=== PATIENT | female | born 1995 | race Hispanic/Latino ===

== ENCOUNTER 2022-06-27 12:52 | Emergency (ER) | payer OTHER ==
--- NOTE | 2022-06-27 14:14 | ER ---
Nurse's Notes [facility] Name: Shila Vivar Age: 26 yrs Sex: Female : 1995 Arrival Date: 06/27/2022 Time: 12:54 Bed 10 Private MD: Diagnosis: Unspecified conjunctivitis Presentation: 06/27 13:47 Chief complaint: Patient states: burning and redness to L eye that began 2 days ago. ss Coronavirus screen: Client denies travel out of the [place] in the last 14 days. Ebola Screen: Patient denies exposure to infectious person. Patient denies travel to an Ebola-affected area in the 21 days before illness onset. Initial Sepsis Screen: Does the patient meet any 2 criteria? No. Patient's initial sepsis screen is negative. Does the patient have a suspected source of infection? No. Patient's initial sepsis screen is negative. Risk Assessment: Do you want to hurt yourself or someone else? Patient reports no desire to harm self or others. Onset of symptoms was June 25, 2022. 13:47 Method Of Arrival: Ambulatory ss 13:47 Acuity: LATISHA 4 ss Historical: - Allergies: 13:47 PENICILLINS; ss - Home Meds: 13:47 None [Active]; ss - PMHx: 13:47 None; ss - PSHx: 13:47 section; ss Screenin:12 [facility] ED Fall Risk Assessment (Adult) History of falling in the last 3 months, ss including since admission. Abuse screen: Denies threats or abuse. Denies injuries from another. Nutritional screening: No deficits noted. Tuberculosis screening: Never had TB. Assessment: 14:02 General: Appears uncomfortable, Behavior is calm, cooperative. Pain: Complains of pain ss in left eye Pain currently is 6 out of 10 on a pain scale. Quality of pain is described as burning, Pain began 2-3 days ago. Is continuous. Neuro: Level of Consciousness is awake, alert, obeys commands, Oriented to person, place, time, situation. Cardiovascular: Capillary refill < 3 seconds is brisk in bilateral fingers Patient's skin is warm and dry. Respiratory: Airway is patent Respiratory effort is even, unlabored, Respiratory pattern is regular, symmetrical. Derm: Skin is intact, is healthy with good turgor, Skin is dry, Skin is pink, warm \T\ dry. normal. Musculoskeletal: Circulation, motion, and sensation intact. Range of motion: intact in all extremities, Swelling absent. Vital Signs: 13:47 BP 139 / 96; Pulse 82; Resp 14; Temp 98.3(TE); Pulse Ox 100% on R/A; ss Visual Acuity: 14:12 Left Eye Visual acuity 20/100, ; Right Eye Visual acuity 20/200, ; Both Eyes Visual ss acuity 20/70; Without Lenses; ED Course: 12:54 Patient arrived in ED. mr 13:45 [facility] snw 13:45 Piyush Gerber MD is Attending Physician. snw 13:47 Triage completed. ss 13:47 Arm band placed on right wrist. ss 14:02 Patient has correct armband on for positive identification. ss 14:15 Lucinda Carlisle, JENNIFER is Primary Nurse. ss 15:35 No provider procedures requiring assistance completed. Patient did not have IV access ss during this emergency room visit. Administered Medications: 15:09 Drug: Vigamox (moxifloxacin) Drops 0.5 % 2 drops Route: Ophthalmic; Site: left eye; ss Medication: 14:12 VIS not applicable for this client. ss Outcome: 14:13 Discharge ordered by . snw 15:35 Discharged to home ambulatory. ss 15:35 Condition: good 15:35 Discharge instructions given to patient, family, Instructed on discharge instructions, follow up and referral plans. medication usage, Demonstrated understanding of instructions, follow-up care, medications, Prescriptions given X 1. 15:36 Patient left the ED. ss Signatures: Isabelle Cooley FNP-C FNP-Ame Mindy Berger mr Lucinda Carlisle, RN RN ss
--- NOTE | 2022-06-27 14:14 | EDPHYS ---
Physician Documentation [facility] Name: Shila Vivar Age: 26 yrs Sex: Female : 1995 Arrival Date: 06/27/2022 Time: 12:54 Bed 10 Private MD: ED Physician Piyush Gerber HPI: 06/27 13:43 This 26 yrs old Female presents to ER via Unassigned with complaints of Eye snw Problem. 13:43 The patient is experiencing pain, redness, tearing, to the left eye, caused by contact snw lens. Onset: The symptoms/episode began/occurred acutely, 2 day(s) ago, and became persistent. Duration: the symptoms are continuous. Alleviated by covering eye. Associated signs and symptoms: Pertinent positives: None. Patient wears soft contacts. Severity of symptoms: At their worst the symptoms were mild in the emergency department the symptoms are unchanged. It is unknown whether or not the patient has had similar symptoms in the past. It is unknown whether or not the patient has recently seen a physician. gets contacts in [place]. Historical: - Allergies: 13:47 PENICILLINS; ss - Home Meds: 13:47 None [Active]; ss - PMHx: 13:47 None; ss - PSHx: 13:47 section; ss ROS: 13:43 Constitutional: Negative for fever, chills, and weight loss, ENT: Negative for injury, snw pain, and discharge, Neck: Negative for injury, pain, and swelling, Cardiovascular: Negative for chest pain, palpitations, and edema, Respiratory: Negative for shortness of breath, cough, wheezing, and pleuritic chest pain, Abdomen/GI: Negative for abdominal pain, nausea, vomiting, diarrhea, and constipation, Back: Negative for injury and pain, : Negative for injury, bleeding, discharge, and swelling, MS/Extremity: Negative for injury and deformity, Skin: Negative for injury, rash, and discoloration, Neuro: Negative for headache, weakness, numbness, tingling, and seizure, Psych: Negative for depression, anxiety, suicide ideation, homicidal ideation, and hallucinations. 13:43 Eyes: Positive for itching, photophobia, redness, of the outer aspect of conjuctiva of left eye and inner aspect of conjunctiva of left eye. Exam: 13:43 Constitutional: This is a well developed, well nourished patient who is awake, alert, snw and in no acute distress. Head/Face: Normocephalic, atraumatic. Neck: Trachea midline, no thyromegaly or masses palpated, and no cervical lymphadenopathy. Supple, full range of motion without nuchal rigidity, or vertebral point tenderness. No Meningismus. Chest/axilla: Normal chest wall appearance and motion. Nontender with no deformity. No lesions are appreciated. Cardiovascular: Regular rate and rhythm with a normal S1 and S2. No gallops, murmurs, or rubs. Normal PMI, no JVD. No pulse deficits. Respiratory: Lungs have equal breath sounds bilaterally, clear to auscultation and percussion. No rales, rhonchi or wheezes noted. No increased work of breathing, no retractions or nasal flaring. Abdomen/GI: Soft, non-tender, with normal bowel sounds. No distension or tympany. No guarding or rebound. No evidence of tenderness throughout. Back: No spinal tenderness. No costovertebral tenderness. Full range of motion. Skin: Warm, dry with normal turgor. Normal color with no rashes, no lesions, and no evidence of cellulitis. MS/ Extremity: Pulses equal, no cyanosis. Neurovascular intact. Full, normal range of motion. Neuro: Awake and alert, GCS 15, oriented to person, place, time, and situation. Cranial nerves II-XII grossly intact. Motor strength 5/5 in all extremities. Sensory grossly intact. Cerebellar exam normal. Normal gait. Psych: Awake, alert, with orientation to person, place and time. Behavior, mood, and affect are within normal limits. Vital Signs: 13:47 BP 139 / 96; Pulse 82; Resp 14; Temp 98.3(TE); Pulse Ox 100% on R/A; ss Visual Acuity: 14:12 Left Eye Visual acuity 20/100, ; Right Eye Visual acuity 20/200, ; Both Eyes Visual ss acuity 20/70; Without Lenses; MDM: 13:45 Patient medically screened. snw 14:10 Differential diagnosis: Data reviewed: vital signs, nurses notes. Counseling: I had a snw detailed discussion with the patient and/or guardian regarding: the historical points, exam findings, and any diagnostic results supporting the discharge/admit diagnosis, the need for outpatient follow up, for definitive care, to return to the emergency department if symptoms worsen or persist or if there are any questions or concerns that arise at home. Special discussion: I have referred the patient to see his PCP for further evaluation of high blood pressure. Based on the history and exam findings, there is no indication for further emergent testing or inpatient evaluation. I discussed with the patient/guardian the need to see the opthamologist for further evaluation of the symptoms. ED course: VA Left 20/70 Right 20/200. Administered Medications: 15:09 Drug: Vigamox (moxifloxacin) Drops 0.5 % 2 drops Route: Ophthalmic; Site: left eye; ss Disposition Summary: 06/27/22 14:13 Discharge Ordered Location: Home snw Condition: Stable snw Diagnosis - Unspecified conjunctivitis snw Followup: snw - With: Emergency Department - When: As needed - Reason: Worsening of condition Followup: snw - With: Private Physician - When: 1 - 2 days - Reason: Recheck today's complaints, Continuance of care, Re-evaluation by your physician Discharge Instructions: - Discharge Summary Sheet snw - Viral Conjunctivitis, Adult snw Forms: - Medication Reconciliation Form snw - Thank You Letter snw - Antibiotic Education snw - Prescription Opioid Use snw Prescriptions: - Vigamox 0.5 % Ophthalmic Drops - instill 1 drop by OPHTHALMIC route every 8 hours for 7 days; 5 milliliter; snw Refills: 0, Product Selection Permitted Signatures: Isabelle Cooley, RECRUITING ADMINISTRATOR-C RECRUITING ADMINISTRATOR-Amew Lucinda Carlisle RN RN
[2022-06-27] MEDS ORDERED: MOXIFLOXACIN HCL 0.5% 3ML OPTH OPTH SCH (15:30)
[2022-06-27 15:41] VITALS: BP 139/96; TEMP 98.3; O2SAT 100
== END 2022-06-27 15:36 | disposition home or self-care (01) ==
LOC: ER 12:52
DX: H10.9 Unspecified conjunctivitis (principal); Z88.0 Allergy status to penicillin
CPT/HCPCS: 99283

== ENCOUNTER 2024-05-30 17:47 | Emergency (ER) | payer OTHER ==
[2024-05-30] MEDS ORDERED: TRAMADOL HCL 50 MG TAB ONE (19:53)
[2024-05-30] MEDS ORDERED: ACETAMINOPHEN 500 MG TAB ONE (19:53)
--- NOTE | 2024-05-30 19:56 | RAD REPORT ---
EXAM:Os Calcis (Calcaneus) Heel CLINICAL HISTORY: Heel pain FINDINGS: No fracture or dislocation seen Small plantar calcaneal spur
--- NOTE | 2024-05-30 20:25 | ER ---
Nurse's Notes [facility] Name: Shila Caldera Age: 28 yrs Sex: Female : 1995 Arrival Date: 05/30/2024 Time: 17:47 Bed 18 Private MD: Diagnosis: Pain in left foot Presentation: 05/30 18:32 Chief complaint: Patient states: Left heel pain - pt goes to [facility] to get injections ld1 for pain to foot. Pt reports having heel spur. Last injection was in March. Coronavirus screen: At this time, the client does not indicate any symptoms associated with coronavirus-19. Ebola Screen: No symptoms or risks identified at this time. Initial Sepsis Screen: Does the patient meet any 2 criteria? No. Patient's initial sepsis screen is negative. Does the patient have a suspected source of infection? No. Patient's initial sepsis screen is negative. Risk Assessment: Do you want to hurt yourself or someone else? Patient reports no desire to harm self or others. Onset of symptoms was May 30, 2024. 18:32 Method Of Arrival: Ambulatory ld1 18:32 Acuity: LATISHA 4 ld1 Triage Assessment: 18:34 General: Appears in no apparent distress. comfortable, Behavior is calm, cooperative, ld1 appropriate for age. Pain: Complains of pain in left foot Pain does not radiate. Pain currently is 8 out of 10 on a pain scale. Quality of pain is described as throbbing. EENT: No signs and/or symptoms were reported regarding the EENT system. Neuro: Level of Consciousness is awake, alert, obeys commands, Oriented to person, place, time, situation. Cardiovascular: Capillary refill < 3 seconds Patient's skin is warm and dry. Respiratory: Airway is patent Respiratory effort is even, unlabored. GI: Abdomen is round non-distended. : No signs and/or symptoms were reported regarding the genitourinary system. Derm: No signs and/or symptoms reported regarding the dermatologic system. Musculoskeletal: No signs and/or symptoms reported regarding the musculoskeletal system. 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 - Infectious Disease History:: Denies. - Social history:: Smoking status: Patient denies any tobacco usage or history of. Screenin:35 [facility] ED Fall Risk Assessment (Adult) History of falling in the last 3 months, ld1 including since admission No falls in past 3 months (0 pts) Confusion or Disorientation No (0 pts) Intoxicated or Sedated No (0 pts) Impaired Gait No (0 pts) Mobility Assist Device Used No (0 pt) Altered Elimination No (0 pt) Score/Fall Risk Level 0 - 2 = Low Risk Oriented to surroundings, Maintained a safe environment, Educated pt \T\ family on fall prevention, incl call for assistance when getting out of bed, Assessed \T\ reinforced patient's understanding of fall precautions, Provided non-skid footwear, Hourly rounding (assess needs \T\ fall precautionary measures) done, Used ambulatory aids as needed (educated on \T\ assisted with), Used gait belt as appropriate. Abuse screen: Denies threats or abuse. Denies injuries from another. Nutritional screening: No deficits noted. Tuberculosis screening: No symptoms or risk factors identified. Assessment: 18:35 Reassessment: See triage assessment. ld1 20:00 Reassessment: Patient appears in no apparent distress at this time. Patient and/or kj2 family updated on plan of care and expected duration. Pain level reassessed. Patient is alert, oriented x 3, equal unlabored respirations, skin warm/dry/pink. 20:43 Reassessment: Patient appears in no apparent distress at this time. Patient and/or kj2 family updated on plan of care and expected duration. Pain level reassessed. Patient is alert, oriented x 3, equal unlabored respirations, skin warm/dry/pink. 21:15 Reassessment: placement of boot at this time. kj2 21:48 Reassessment: Patient appears in no apparent distress at this time. Patient and/or kj2 family updated on plan of care and expected duration. Pain level reassessed. Patient is alert, oriented x 3, equal unlabored respirations, skin warm/dry/pink. Vital Signs: 18:32 BP 173 / 116; Pulse 91; Resp 18; Temp 98.1(O); Pulse Ox 100% on R/A; Weight 95.25 kg; ld1 Height 5 ft. 5 in. ; Pain 7/10; 18:35 BP 145 / 92; ld1 20:43 BP 142 / 88; Pulse 80; Resp 18; Temp 98; Pulse Ox 100% on R/A; kj2 21:48 BP 136 / 78; Pulse 80; Resp 18; Temp 98.2; Pulse Ox 100% ; kj2 18:32 Body Mass Index 34.95 (95.25 kg, 165.1 cm) ld1 18:32 Pain Scale: Adult ld1 ED Course: 17:51 Patient arrived in ED. im 18:01 Piyush Elias PA is PHCP. cp 18:02 Piyush Gerber MD is Attending Physician. cp 18:34 Triage completed. ld1 18:34 Arm band placed on right wrist. ld1 18:35 Patient has correct armband on for positive identification. Placed in gown. Bed in low ld1 position. Call light in reach. Side rails up X2. Pulse ox on. NIBP on. Door closed. Noise minimized. Warm blanket given. 18:35 No provider procedures requiring assistance completed. ld1 19:37 XRAY Heel Os Calcis (calcaneus) In Process Unspecified. EDMS 19:48 Ana Hammer, RN is Primary Nurse. kj2 20:00 Provided Education on: call light. kj2 20:24 Kojo Finley DPM is Referral Physician. cp 20:46 Patient did not have IV access during this emergency room visit. kj2 21:23 Ortho shoe applied to left foot. oe Administered Medications: 19:57 Drug: Acetaminophen PO 1000 mg PO once Route: PO; vc1 20:43 Follow up: Response: No adverse reaction kj2 20:45 Follow up: Response: No adverse reaction kj2 20:28 Drug: traMADol PO 50 mg PO once; may give if not Route: PO; vc1 20:44 Follow up: Response: No adverse reaction kj2 20:46 Follow up: Response: No adverse reaction kj2 Medication: 18:35 VIS not applicable for this client. ld1 Outcome: 20:24 Discharge ordered by . cp 20:45 Discharged to home ambulatory, kj2 20:45 Condition: stable 20:45 Discharge instructions given to patient, Instructed on discharge instructions, follow up and referral plans. medication usage, Demonstrated understanding of instructions, follow-up care, medications, Prescriptions given X 1, 21:49 Patient left the ED. kj2 Signatures: Dispatcher [employer] EDMS Piyush Elias PA PA cp Espinosa, [place] oe Sims, Lauren, RN RN ld1 Carine Crandall RN RN vc1 Iman Das Krystal RN RN kj2
--- NOTE | 2024-05-30 20:25 | EDPHYS ---
Physician Documentation [facility] Name: Shila Caldera Age: 28 yrs Sex: Female : 1995 Arrival Date: 05/30/2024 Time: 17:47 Bed 18 Private MD: ED Physician Piyush Gerber HPI: 05/30 18:45 This 28 yrs old Female presents to ER via Ambulatory with complaints of Foot cp Pain - left. 18:45 The patient presents with pain, that is chronic. The complaints affect the left heel. cp 18:45 Onset: The symptoms/episode began/occurred at an unknown time. Associated signs and cp symptoms: The patient has no apparent associated signs or symptoms. 18:45 Patient reports history of heel spur and that she was getting injections for pain done cp in [place] with last injection performed in March 2024. 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 - Infectious Disease History:: Denies. - Social history:: Smoking status: Patient denies any tobacco usage or history of. ROS: 18:50 MS/extremity: Positive for pain, tenderness, of the left heel, Negative for injury or cp acute deformity, 18:50 Constitutional: Negative for body aches, chills, fever, cp 18:50 Neck: Negative for pain with movement, pain at rest, stiffness, 18:50 Back: Negative for pain at rest, pain with movement, 18:50 Neuro: Negative for numbness, weakness, 18:50 All other systems are negative, Exam: 18:55 Constitutional: The patient appears in no acute distress, alert, awake, well developed, cp well nourished, overweight 18:55 Head/Face: Normocephalic, atraumatic. cp 18:55 Cardiovascular: Rate: normal, 18:55 Respiratory: the patient does not display signs of respiratory distress, Respirations: normal, no use of accessory muscles, 18:55 Abdomen/GI: Inspection: abdomen appears normal, 18:55 Back: pain, is absent, 18:55 Musculoskeletal/extremity: Extremities: grossly normal except: noted in the left heel: pain, tenderness, There is no evidence of erythema, swelling, Vital Signs: 18:32 BP 173 / 116; Pulse 91; Resp 18; Temp 98.1(O); Pulse Ox 100% on R/A; Weight 95.25 kg; ld1 Height 5 ft. 5 in. ; Pain 7/10; 18:35 BP 145 / 92; ld1 20:43 BP 142 / 88; Pulse 80; Resp 18; Temp 98; Pulse Ox 100% on R/A; kj2 21:48 BP 136 / 78; Pulse 80; Resp 18; Temp 98.2; Pulse Ox 100% ; kj2 18:32 Body Mass Index 34.95 (95.25 kg, 165.1 cm) ld1 18:32 Pain Scale: Adult ld1 MDM: 18:38 Medical Screening Exam initiated cp 19:00 Differential diagnosis: closed fracture, contusion, cellulitis. 20:24 Data reviewed: vital signs, nurses notes, radiologic studies, plain films, and as a result, I will discharge patient. 20:24 I considered the following discharge prescriptions or medication management in the emergency department Medications were administered in the Emergency Department. See MAR. Counseling: I had a detailed discussion with the patient and/or guardian regarding the historical points, exam findings, and any diagnostic results supporting the discharge/admit diagnosis, radiology results, the need for outpatient follow up, for definitive care, a inker, to return to the emergency department if symptoms worsen or persist or if there are any questions or concerns that arise at home. Response to treatment: the patient's symptoms have mildly improved after treatment, and as a result, I will discharge patient. 05/30 19:57 Order name: Test, Urine vc1 05/30 18:39 Order name: XRAY Heel Os Calcis (calcaneus); Complete Time: 20:01 05/30 20:02 Interpretation: Report reviewed. 05/30 20:02 Order name: Walking boot; Complete Time: 21:05 cp Administered Medications: 19:57 Drug: Acetaminophen PO 1000 mg PO once Route: PO; vc1 20:43 Follow up: Response: No adverse reaction kj2 20:45 Follow up: Response: No adverse reaction kj2 20:28 Drug: traMADol PO 50 mg PO once; may give if not Route: PO; vc1 20:44 Follow up: Response: No adverse reaction kj2 20:46 Follow up: Response: No adverse reaction kj2 Disposition: 05/31 21:16 Chart complete. cp Disposition Summary: 05/30/24 20:24 Discharge Ordered Notes: Location: Home cp Problem: an ongoing problem cp Symptoms: have improved cp Condition: Stable cp Diagnosis - Pain in left foot cp Followup: cp - With: Kojo Finley DPM - When: 2 - 3 days - Reason: Recheck today's complaints Discharge Instructions: - Discharge Summary Sheet cp - Heel Spur cp - How to Use Cold Therapy cp - Foot Pain cp Forms: - Medication Reconciliation Form cp - Antibiotic Education cp - Prescription Opioid Use cp - Patient Portal Instructions cp - Leadership Thank You Letter cp Prescriptions: - Diclofenac Sodium 75 mg Oral Tablet Sustained Release - take 1 tablet ORAL route 2 times per day; 30 tablet; Refills: 0, Product cp Selection Permitted Addendum: 06/01/2024 09:37 Co-signature as Attending Physician, Piyush Gerber MD I agree with the assessment and c conrad plan of care. Signatures: Dispatcher [employer] EDPiyush Adrian MD MD cha Page, Corey, PA PA cp Kayla Zavala RN RN ld1 Carine Crandall RN RN vc1 Ana Hammer RN kj2 Corrections: (The following items were deleted from the chart) 05/31 20:38 05/30 18:45 The patient presents with pain, cp cp 05/31 21:10 20:38 Onset: The symptoms/episode began/occurred at an unknown time. cp cp 21:10 20:38 Associated signs and symptoms: The patient has no apparent associated signs or cp symptoms, cp
[2024-05-30 20:31] LABS: Specific Gravity 1.016 (1.005-1.030)
[2024-06-02 01:44] VITALS: BP 136/78; TEMP 98.2; O2SAT 100
== END 2024-05-30 21:49 | disposition home or self-care (01) ==
LOC: ER 17:47
DX: M79.672 Pain in left foot (principal)
CPT/HCPCS: 73650; 81025; 99284

== ENCOUNTER 2024-06-19 14:01 | Emergency (ER) | payer OTHER ==
[2024-06-19] MEDS ORDERED: IBUPROFEN 400 MG TAB ONE (15:34)
[2024-06-19] MEDS ORDERED: ACETAMINOPHEN 500 MG TAB ONE (15:34)
[2024-06-19 16:26] LABS: SARS-CoV-2 Antigen CONTROL BLUE LINE VIS/BG OK; SARS-CoV-2 Antigen Rapid Res Negative (Negative)
--- NOTE | 2024-06-19 16:41 | ER ---
Nurse's Notes [facility] Name: Shila Caldera Age: 28 yrs Sex: Female : 1995 Arrival Date: 06/19/2024 Time: 14:01 Bed Treatment Private MD: Diagnosis: Acute suppurative otitis media;Viral infection, unspecified Presentation: 06/19 14:37 Chief complaint: Fever, cough, decreased appetite, body aches, and left ear pain x 2 hb days. Coronavirus screen: At this time, the client does not indicate any symptoms associated with coronavirus-19. Ebola Screen: No symptoms or risks identified at this time. Initial Sepsis Screen: Does the patient meet any 2 criteria? No. Patient's initial sepsis screen is negative. Does the patient have a suspected source of infection? No. Patient's initial sepsis screen is negative. Risk Assessment: Do you want to hurt yourself or someone else? Patient reports no desire to harm self or others. Onset of symptoms was June 17, 2024. 14:37 Method Of Arrival: Ambulatory hb 14:37 Acuity: LATISHA 4 hb Historical: - Allergies: 14:38 PENICILLINS; hb - Home Meds: 14:38 None [Active]; hb - PMHx: 14:38 None; hb - PSHx: 14:38 section; hb - Immunization history:: Adult Immunizations up to date. - Infectious Disease History:: Denies. - Social history:: Smoking status: Patient denies any tobacco usage or history of. Screenin:00 [facility] ED Fall Risk Assessment (Adult) History of falling in the last 3 months, aa5 including since admission No falls in past 3 months (0 pts) Confusion or Disorientation No (0 pts) Intoxicated or Sedated No (0 pts) Impaired Gait No (0 pts) Mobility Assist Device Used No (0 pt) Altered Elimination No (0 pt) Score/Fall Risk Level 0 - 2 = Low Risk Oriented to surroundings, Maintained a safe environment, Educated pt \T\ family on fall prevention, incl call for assistance when getting out of bed, Assessed \T\ reinforced patient's understanding of fall precautions. Abuse screen: Denies threats or abuse. Nutritional screening: No deficits noted. Tuberculosis screening: No symptoms or risk factors identified. Assessment: 17:00 General: Appears uncomfortable, Behavior is calm, cooperative, Reports chills for 1-2 aa5 days, fever for 1-2 days, feeling ill for 1-2 days. Pain: Complains of pain in left ear. Neuro: Level of Consciousness is awake, alert, obeys commands, Oriented to person, place, time, situation. Cardiovascular: Patient's skin is warm and dry. Respiratory: Airway is patent Respiratory effort is even, unlabored, Respiratory pattern is regular, symmetrical. GI: Abdomen is round non-distended, Bowel sounds present X 4 quads. Abd is soft and non tender X 4 quads. Reports decreased appetite. : No signs and/or symptoms were reported regarding the genitourinary system. EENT: Reports pain in left ear. Derm: Skin is pink, warm \T\ dry. Musculoskeletal: Range of motion: intact in all extremities. 17:40 Reassessment: Patient is alert, oriented x 3, equal unlabored respirations, skin aa5 warm/dry/pink. Patient states feeling better. Vital Signs: 14:37 BP 133 / 104; Pulse 132; Resp 18; Temp 102.2(O); Pulse Ox 100% on R/A; Weight 95.25 kg; hb Height 5 ft. 6 in. ; Pain 9/10; 17:20 BP 128 / 96; Pulse 111; Resp 19 S; Temp 99.1(O); Pulse Ox 99% on R/A; aa5 14:37 Body Mass Index 33.89 (95.25 kg, 167.64 cm) hb 14:37 Pain Scale: Adult hb ED Course: 14:09 Patient arrived in ED. im 14:10 Amilcar Wise MD is Attending Physician. ec2 14:38 Triage completed. hb 14:38 Arm band placed on. hb 17:00 Patient has correct armband on for positive identification. Bed in low position. Call aa5 light in reach. Side rails up X 1. Adult w/ patient. 17:40 No provider procedures requiring assistance completed. Patient did not have IV access aa5 during this emergency room visit. 17:44 Carole Aguila, RN is Primary Nurse. aa5 Administered Medications: 15:46 Drug: Clindamycin PO 450 mg PO once Route: PO; kb3 17:20 Follow up: Response: No adverse reaction aa5 15:46 Drug: Acetaminophen PO 1000 mg PO once Route: PO; kb3 17:20 Follow up: Response: No adverse reaction aa5 15:46 Drug: Ibuprofen PO 800 mg PO once Route: PO; kb3 17:20 Follow up: Response: No adverse reaction aa5 Medication: 17:30 VIS not applicable for this client. aa5 Outcome: 16:40 Discharge ordered by . ec2 17:40 Discharged to home ambulatory, aa5 17:40 Condition: stable 17:40 Discharge instructions given to patient, Instructed on discharge instructions, follow up and referral plans. medication usage, Demonstrated understanding of instructions, follow-up care, medications, Prescriptions given X 2, 17:45 Patient left the ED. aa5 Signatures: Carole Aguila RN RN aa5 Yuni Terrell RN RN Sabina Bryant RN RN kb3 Iman Das Edwin, MD MD ec2 Corrections: (The following items were deleted from the chart) 14:43 14:37 BP 133 / 104; Pulse 132bpm; Resp 18bpm; Pulse Ox 100% RA; Temp 99.7F Temporal; hb hb 20:33 17:40 Reassessment: Patient is alert, oriented x 3, equal unlabored respirations, skin aa5 warm/dry/pink. aa5 20:33 17:00 General: Appears uncomfortable, Behavior is calm, cooperative, aa5 aa5
--- NOTE | 2024-06-19 16:41 | EDPHYS ---
Physician Documentation [facility] Name: Shila Caldera Age: 28 yrs Sex: Female : 1995 Arrival Date: 06/19/2024 Time: 14:01 Bed Treatment Private MD: ED Physician Amilcar Wise HPI: 06/19 14:51 This 28 yrs old Female presents to ER via Ambulatory with complaints of Flu ec2 Symptoms. 14:51 Patient arrives today for evaluation of upper respiratory symptoms with a left ear ec2 pain. Patient with cough and congestion, rhinorrhea as well as left ear pain. No vomiting, no diarrhea, does complain myalgias.. Historical: - Allergies: 14:38 PENICILLINS; hb - Home Meds: 14:38 None [Active]; hb - PMHx: 14:38 None; hb - PSHx: 14:38 section; hb - Immunization history:: Adult Immunizations up to date. - Infectious Disease History:: Denies. - Social history:: Smoking status: Patient denies any tobacco usage or history of. ROS: 14:51 Constitutional: as per hpi ec2 Exam: 14:51 Constitutional: 5 GEN: NAD Head: atraumatic Eyes: EOMI Ears: External ears are ec2 normal. Left otitis media CV: regular rate LUNGS: no respiratory distress ABD: non-distended SKIN: no evidence of rashes MSK: no evidence of trauma Vital Signs: 14:37 BP 133 / 104; Pulse 132; Resp 18; Temp 102.2(O); Pulse Ox 100% on R/A; Weight 95.25 kg; hb Height 5 ft. 6 in. ; Pain 9/10; 17:20 BP 128 / 96; Pulse 111; Resp 19 S; Temp 99.1(O); Pulse Ox 99% on R/A; aa5 14:37 Body Mass Index 33.89 (95.25 kg, 167.64 cm) hb 14:37 Pain Scale: Adult hb MDM: 14:33 Medical Screening Exam initiated ec2 14:51 Data reviewed: vital signs, nurses notes. ED course: Patient arrives today for upper ec2 respiratory symptoms and left ear pain. Examination yields otitis media of the left ear. Suspect viral infection as well.. 06/19 14:45 Order name: Influenza Screen (a \T\ B); Complete Time: 16:35 ec2 06/19 14:45 Order name: SARS RAPID; Complete Time: 16:35 ec2 06/19 16:06 Order name: Vital Signs; Complete Time: 17:45 ec2 Administered Medications: 15:46 Drug: Clindamycin PO 450 mg PO once Route: PO; kb3 17:20 Follow up: Response: No adverse reaction aa5 15:46 Drug: Acetaminophen PO 1000 mg PO once Route: PO; kb3 17:20 Follow up: Response: No adverse reaction aa5 15:46 Drug: Ibuprofen PO 800 mg PO once Route: PO; kb3 17:20 Follow up: Response: No adverse reaction aa5 Disposition Summary: 06/19/24 16:40 Discharge Ordered Notes: Location: Home ec2 Condition: Stable ec2 Diagnosis - Acute suppurative otitis media ec2 - Viral infection, unspecified ec2 Followup: ec2 - With: Private Physician - When: - Reason: Re-evaluation by your physician Discharge Instructions: - Discharge Summary Sheet ec2 - Viral Illness, Adult ec2 Forms: - Medication Reconciliation Form ec2 - Antibiotic Education ec2 - Prescription Opioid Use ec2 - Patient Portal Instructions ec2 - Leadership Thank You Letter ec2 Prescriptions: - Clindamycin HCl 150 mg Oral capsule - take 3 capsule ORAL route every 6 hours for 7 days; 63 capsule; Refills: 0, ec2 Product Selection Permitted - Tessalon Perles 100 mg Oral Capsule - take 1 capsule ORAL route every 8 hours As needed; 15 capsule; Refills: 0, ec2 Product Selection Permitted Signatures: Dispatcher [employer] Yuni Brewer RN RN Sabina Bryant RN RN kb3 Amilcar Wise MD MD ec2 Carole Aguila RN aa5
[2024-06-19 17:51] VITALS: BP 133/104; TEMP 102.2; O2SAT 100
== END 2024-06-19 17:45 | disposition home or self-care (01) ==
LOC: ER 14:01
DX: H66.002 Acute suppurative otitis media without spontaneous rupture of ear drum, left ear (principal); B34.9 Viral infection, unspecified; Z11.52 Encounter for screening for COVID-19
CPT/HCPCS: 36415; 87804; 87811; 99283

== ENCOUNTER 2025-03-09 13:36 | Emergency (ER) | payer OTHER ==
[2025-03-09 15:20] LABS: Urine Microscopic Reflex YN NO UMIC
[2025-03-09 15:23] LABS: Absolute Lymphocytes (CBC) 2.3 K/uL (0.7-4.9); Hematocrit 35.4 % (36.0-45.0); Hemoglobin 11.4 g/dL (12.0-15.0); MCH 24.0 pg (27.0-35.0); MCHC 32.3 g/dL (32.0-36.0); MCV 74.3 fL (80-100); MPV 9.4 fL (7.6-11.3); Nucleated RBC Absolute Count 0.0 (0-0); Nucleated Red Blood Cells % 0.1 % (0-0); RBC Red Blood Cell Count 4.76 M/uL (3.86-4.86); White Blood Count 11.60 thou/uL (4.3-10.9)
[2025-03-09 15:41] LABS: ALT/SGPT 23.0 U/L (13-56); AST/SGOT 12.0 U/L (15-37); Albumin 3.8 g/dL (3.4-5.0); Albumin/Globulin Ratio 1.0 (1.1-1.8); Alkaline Phosphatase 69.0 U/L (45-117); Anion Gap 8.8 mEq/L (5.0-15.0); BUN Blood Urea Nitrogen 15.0 mg/dL (7-18); Globulin 3.9 g/dL (2.3-3.5); Glucose Level 99.0 mg/dL (74-106); Lipase 22.0 U/L (13-75); Potassium 3.8 mEq/L (3.5-5.1)
[2025-03-09] MEDS ORDERED: ONDANSETRON 4 MG/2 ML VIAL ONE ×2 (16:08→17:13)
[2025-03-09] MEDS ORDERED: NA CHLORIDE 0.9% 1,000 ML ONE (16:09)
--- NOTE | 2025-03-09 16:47 | RAD REPORT ---
EXAMINATION: Abdomen Pelvis W Contrast CLINICAL INDICATION: Female, 29 years old.ABD PAIN TECHNIQUE: CT abdomen and pelvis was performed, after the administration of IV contrast, as per [facility] protocol. Axial, sagittal and coronal reconstructions were obtained. One or more of the following dose reduction techniques were used: Automated exposure control, adjustment of the mA and/o r kV according to patient size, and/or iterative reconstruction. Unless otherwise specified, incidental findings do not require dedicated imaging follow-up. [id number]. COMPARISON: No prior exams FINDINGS: LOWER CHEST: No acute process identified. No significant pericardial effusion. UPPER GI: No significant abnormality. LIVER: No significant focal abnormality. GALLBLADDER/BILE DUCTS: Cholelithiasis without CT evidence of acute cholecystitis.? PANCREAS: No mass, ductal dilation, or criss-pancreatic fluid. SPLEEN: Unremarkable. ADRENALS: No adrenal masses. KIDNEYS AND URETERS: Borderline left-sided hydronephrosis and hydroureter. No striking stones. No marck picious renal mass. There is some prominence of the right collecting system and ureter as well. No suspicious renal mass. ABDOMINAL AORTA AND OTHER VESSELS: Normal caliber aorta and IVC. PERITONEUM: No abnormal free fluid. No free air. LYMPH NODES: No pathologic lymphadenopathy. ABDOMINAL WALL: Unremarkable SMALL BOWEL/COLON: Small bowel has normal course and caliber. No colonic wall thickening or pericolon ic inflammatory changes. Normal appendix. URINARY BLADDER: Underdistended but grossly unremarkable. REPRODUCTIVE ORGANS: Probable including cysts in the right ovary. MUSCULOSKELETAL: No acute or suspicious osseous abnormality. ADDITIONAL FINDINGS: None. IMPRESSION: No definite acute findings within the abdomen or pelvis. Bilateral collecting system fullness and hyd roureter without obstructing stone could potentially be related to in ascending urinary tract infection. Correlate with urinalysis. Cholelithiasis without CT evidence of acute cholecystitis.
[2025-03-09] MEDS ORDERED: KETOROLAC 30 MG/ML INJ ONE (17:13)
--- NOTE | 2025-03-09 17:45 | ER ---
Nurse's Notes [facility] Name: Shila Caldera Age: 29 yrs Sex: Female : 1995 Arrival Date: 03/09/2025 Time: 13:36 Bed 5 Private MD: Diagnosis: Other ovarian cysts Presentation: 03/09 14:13 Chief complaint: Patient states: intermittent suprapubic pain that is worse today. me1 Pressure 7/10. Denies pain with urination. Reports urinary frequency. Denies fever/n/v. Coronavirus screen: At this time, the client does not indicate any symptoms associated with coronavirus-19. Ebola Screen: No symptoms or risks identified at this time. Initial Sepsis Screen: Does the patient meet any 2 criteria? No. Patient's initial sepsis screen is negative. Does the patient have a suspected source of infection? No. Patient's initial sepsis screen is negative. Risk Assessment: Do you want to hurt yourself or someone else? Patient reports no desire to harm self or others. Onset of symptoms is unknown. 14:13 Method Of Arrival: Wheelchair me1 14:13 Acuity: LATISHA 3 me1 [employer] ADMINISTRATOR: 14:14 LMP 02/17/2025, unknown me1 Historical: - Allergies: 14:14 PENICILLINS; me1 - PMHx: 14:14 Hypertensive disorder; with ; me1 14:17 ovarian cyst; me1 - PSHx: 14:14 section; me1 - Immunization history:: Adult Immunizations up to date. - Infectious Disease History:: Denies. - Social history:: Smoking status: Patient denies any tobacco usage or history of. Screenin:51 [facility] ED Fall Risk Assessment (Adult) History of falling in the last 3 months, ap3 including since admission No falls in past 3 months (0 pts) Confusion or Disorientation No (0 pts) Intoxicated or Sedated No (0 pts) Impaired Gait No (0 pts) Mobility Assist Device Used No (0 pt) Altered Elimination No (0 pt) Score/Fall Risk Level 0 - 2 = Low Risk Oriented to surroundings, Maintained a safe environment, Educated pt \T\ family on fall prevention, incl call for assistance when getting out of bed, Assessed \T\ reinforced patient's understanding of fall precautions, Hourly rounding (assess needs \T\ fall precautionary measures) done, Used ambulatory aids as needed (educated on \T\ assisted with). Abuse screen: Denies threats or abuse. Nutritional screening: No deficits noted. Tuberculosis screening: No symptoms or risk factors identified. Assessment: 16:20 General: Appears comfortable, Behavior is calm, cooperative. Pain: Complains of pain in aa5 pelvis Pain currently is 7 out of 10 on a pain scale. Quality of pain is described as aching, Pain began 1 day ago. Is intermittent. Neuro: Level of Consciousness is awake, alert, obeys commands, Oriented to person, place, time, situation. Cardiovascular: Patient's skin is warm and dry. Respiratory: Airway is patent Respiratory effort is even, unlabored, Respiratory pattern is regular, symmetrical. GI: Abdomen is round non-distended, Bowel sounds present X 4 quads. Abd is soft and non tender X 4 quads. : Reports urinary frequency. Derm: Skin is pink, warm \T\ dry. Musculoskeletal: Range of motion: intact in all extremities. 16:20 EENT: No signs and/or symptoms were reported regarding the EENT system. aa5 17:52 Reassessment: Patient and/or family updated on plan of care and expected duration. Pain ap3 level reassessed. Patient is alert, oriented x 3, equal unlabored respirations, skin warm/dry/pink. Patient states feeling better. Patient states symptoms have improved. Vital Signs: 14:13 BP 147 / 97; Pulse 74; Resp 18; Temp 98.4; Pulse Ox 100% ; Weight 92.99 kg; Height 5 me1 ft. 5 in. ; Pain 7/10; 16:32 BP 144 / 91; Pulse 89; Resp 17; Pulse Ox 100% ; ap3 17:53 BP 153 / 98; Pulse 78; Resp 18; Pulse Ox 100% on R/A; ap3 14:13 Body Mass Index 34.11 (92.99 kg, 165.1 cm) me1 14:13 Pain Scale: Adult md1 ED Course: 13:40 Patient arrived in ED. im 13:43 [facility] 13:43 Krystina Colmenares MD is Attending Physician. dr5 14:14 Triage completed. me1 14:14 Arm band placed on Patient placed in waiting room. me1 14:59 Test, Urine Sent. bc6 14:59 UA Rfx Nikhil Cult if indicated Sent. bc6 14:59 CBC with Diff Sent. bc6 14:59 CMP Sent. bc6 14:59 Lipase Sent. 6 14:59 Initial lab(s) drawn, by md, sent to lab. Urine collected: clean catch specimen, clear. bc6 Inserted saline lock: 20 gauge in right antecubital area, using aseptic technique. Blood collected. Flushed with 10 mL NS. 16:03 Carole Aguila, RN is Primary Nurse. aa5 16:15 CT Abd/Pelvis - IV Contrast Only In Process Unspecified. EDMS 17:44 Lainey Mccray MD is Referral Physician. dr5 17:52 Patient has correct armband on for positive identification. Bed in low position. Call ap3 light in reach. Side rails up X2. Adult w/ patient. Provided Education on: discharge instructions . 17:52 No provider procedures requiring assistance completed. IV discontinued, intact, ap3 bleeding controlled, No redness/swelling at site. Pressure dressing applied. Administered Medications: 16:20 Drug: NS 0.9% IV 1000 ml IV at 1 bolus Per protocol; to be given as a bolus over 60 aa5 minutes Route: IV; Rate: 1 bolus; Site: right antecubital; 17:51 Follow up: IV Status: Completed infusion; IV Intake: 1000ml ap3 16:35 Not Given (Patient Refused): ondansetron 4 mg IVP once; over 2 minutes aa5 17:17 Drug: Ketorolac IVP 15 mg IVP once Route: IVP; Site: right antecubital; ap3 17:51 Follow up: Response: No adverse reaction; Pain is decreased ap3 17:18 Not Given (Patient Refused): ondansetron 4 mg IVP once; over 2 minutes ap3 Medication: 17:52 VIS not applicable for this client. ap3 Intake: 17:51 IV: 1000ml; Total: 1000ml. ap3 Outcome: 17:44 Discharge ordered by . dr5 17:52 Discharged to home ambulatory, with family, ap3 17:52 Condition: good 17:52 Discharge instructions given to patient, family, Instructed on discharge instructions, follow up and referral plans. medication usage, Demonstrated understanding of instructions, follow-up care, medications, Prescriptions given X 1, 17:53 Patient left the ED. ap3 Signatures: Dispatcher [employer] EDMS Carole Aguila RN RN aa5 Lola Houser RN RN ap3 Monalisa Nettles 6 Iman Das Michelle, RN RN me1 Epi Marcano, COMPOSITE BOND TECHNICIAN-C COMPOSITE BOND TECHNICIAN-Cdr5 Corrections: (The following items were deleted from the chart) 17:37 15:20 General: Appears comfortable, Behavior is calm, cooperative, aa5 aa5 17:37 15:20 Pain: Complains of pain in pelvis Pain currently is 7 out of 10 on a pain scale. aa5 Quality of pain is described as aching, Pain began 1 day ago. Is intermittent, aa5 : 15:20 Neuro: Level of Consciousness is awake, alert, obeys commands, Oriented to aa5 person, place, time, situation, aa5 : 15:20 Cardiovascular: Patient's skin is warm and dry. aa5 aa5 :37 15:20 Respiratory: Airway is patent Respiratory effort is even, unlabored, Respiratory aa5 pattern is regular, symmetrical, aa5 17: 15:20 GI: Abdomen is round non-distended, Bowel sounds present X 4 quads. Abd is soft aa5 and non tender X 4 quads. aa5 17:37 15:20 : No signs and/or symptoms were reported regarding the genitourinary system. aa5aa5 : 15:20 EENT: No signs and/or symptoms were reported regarding the EENT system. aa5 aa5 17:37 15:20 Derm: Skin is pink, warm \T\ dry. aa5 aa5 17:37 15:20 Musculoskeletal: Range of motion: intact in all extremities, aa5 aa5 17:44 16:20 : No signs and/or symptoms were reported regarding the genitourinary system. aa5aa5
--- NOTE | 2025-03-09 17:45 | EDPHYS ---
Physician Documentation [facility] Name: Shila Caldera Age: 29 yrs Sex: Female : 1995 Arrival Date: 03/09/2025 Time: 13:36 Bed 5 Private MD: ED Physician Krystina Colmenares HPI: 03/09 18:12 This 29 yrs old Female presents to ER via Wheelchair with complaints of Pelvic dr5 Pain, Abdominal Pain. 18:12 Onset: The symptoms/episode began/occurred yesterday. Patient is a 29-year-old female dr5 with history of hypertension and ovarian cyst coming in with right lower quad abdominal pain that is been intermittent without dysuria, urinary frequency, urinary hesitancy, or fever.. DIRECTOR OF MEDIA: 14:14 LMP 02/17/2025, unknown me1 Historical: - Allergies: 14:14 PENICILLINS; me1 - PMHx: 14:14 Hypertensive disorder; with ; me1 14:17 ovarian cyst; me1 - PSHx: 14:14 section; me1 - Immunization history:: Adult Immunizations up to date. - Infectious Disease History:: Denies. - Social history:: Smoking status: Patient denies any tobacco usage or history of. ROS: 18:12 Constitutional: as per hpi dr5 Exam: 18:12 Constitutional: This is a well developed, well nourished patient who is awake, alert, dr5 and in no acute distress. Head/Face: Normocephalic, atraumatic. Eyes: Pupils equal round and reactive to light, extra-ocular motions intact. Lids and lashes normal. Conjunctiva and sclera are non-icteric and not injected. Cornea within normal limits. Periorbital areas with no swelling, redness, or edema. Neck: Trachea midline, no thyromegaly or masses palpated, and no cervical lymphadenopathy. Supple, full range of motion without nuchal rigidity, or vertebral point tenderness. No Meningismus. Chest/axilla: Normal chest wall appearance and motion. Nontender with no deformity. No lesions are appreciated. Cardiovascular: Regular rate and rhythm with a normal S1 and S2. Normal PMI, no JVD. No pulse deficits. Respiratory: Lungs have equal breath sounds bilaterally, clear to auscultation. No rales, rhonchi or wheezes noted. No increased work of breathing, no retractions or nasal flaring. Abdomen/GI: Soft, non-tender, non-distended Back: No spinal tenderness. No costovertebral tenderness. Full range of motion. Skin: Warm, dry with normal turgor. Normal color with no rashes, no lesions, and no evidence of cellulitis. MS/ Extremity: Pulses equal, no cyanosis. Neurovascular intact. Full, normal range of motion. Vital Signs: 14:13 BP 147 / 97; Pulse 74; Resp 18; Temp 98.4; Pulse Ox 100% ; Weight 92.99 kg; Height 5 me1 ft. 5 in. ; Pain 7/10; 16:32 BP 144 / 91; Pulse 89; Resp 17; Pulse Ox 100% ; ap3 17:53 BP 153 / 98; Pulse 78; Resp 18; Pulse Ox 100% on R/A; ap3 14:13 Body Mass Index 34.11 (92.99 kg, 165.1 cm) me1 14:13 Pain Scale: Adult me1 MDM: 13:43 Medical Screening Exam initiated dr5 18:12 Differential diagnosis: viral Infection, Appendicitis, urinary tract infection, ovarian dr5 cyst, pancreatitis. Data reviewed: vital signs, nurses notes, lab test result(s), amylase and lipase, CBC, white blood cell count, hemoglobin, hematocrit, platelets, electrolytes, sodium, potassium, chloride, serum bicarbonate, BUN, creatinine, serum glucose, radiologic studies, CT scan. Consideration of Admission/Observation Escalation of care including admission/observation considered. Escalation considered patient found to have appendicitis. I considered the following discharge prescriptions or medication management in the emergency department I discussed and recommended Over The Counter medications, Medications were administered in the Emergency Department. See MAR. Historians other than the Patient: Spouse/Significant Other: Spouse. Care significantly affected by the following chronic conditions: Hypertension. Care significantly affected by the following Social Determinants of Health: Poor access to healthcare and/or lack of insurance, Poor access to transportation, Problems related to employment. Counseling: I had a detailed discussion with the patient and/or guardian regarding the historical points, exam findings, and any diagnostic results supporting the discharge/admit diagnosis, the presence of at least one elevated blood pressure reading (>120/80) during this emergency department visit, lab results, radiology results, the need for outpatient follow up, for definitive care, a family practitioner, to return to the emergency department if symptoms worsen or persist or if there are any questions or concerns that arise at home. Medication response: Normal saline. Response to treatment: the patient's symptoms have resolved after treatment, the patient is now symptom free. Special discussion: I discussed with the patient/guardian in detail that at this point there is no indication for admission to the hospital. It is understood, however, that if the symptoms persist or worsen the patient needs to return immediately for re-evaluation. I discussed with the patient the need to follow-up with the PCP/specialist for the noted incidental finding on X-ray/CT scanning. Based on the history and exam findings, there is no indication for further emergent testing or inpatient evaluation. I discussed with the patient/guardian the need to see the OB Gyne specialist for further evaluation of the symptoms. I discussed with the patient/guardian the need to see the primary care provider for further evaluation of the symptoms. ED course: Recommended patient follow-up with [facility] for ovarian cyst management as well as well woman's that she has not had an appointment before her [facility]. Incidental finding of cholelithiasis noted and explained to patient. CT scan results and lab results printed and given to patient take with her. All questions answered. Pain from likely ovarian cyst on right side. Patient denies any symptoms on discharge.. 03/09 14:16 Order name: CBC with Diff; Complete Time: 15:32 dr5 03/09 14:16 Order name: CMP; Complete Time: 15:43 dr5 03/09 14:16 Order name: Lipase; Complete Time: 15:43 dr5 03/09 14:16 Order name: UA Rfx Nikhil Cult if indicated; Complete Time: 15:32 dr5 03/09 14:16 Order name: Test, Urine; Complete Time: 15:32 dr5 03/09 15:32 Order name: CT Abd/Pelvis - IV Contrast Only; Complete Time: 16:53 dr5 03/09 14:16 Order name: IV Saline Lock; Complete Time: 14:59 dr5 03/09 14:16 Order name: Labs collected and sent; Complete Time: 14:59 dr5 Administered Medications: 16:20 Drug: NS 0.9% IV 1000 ml IV at 1 bolus Per protocol; to be given as a bolus over 60 aa5 minutes Route: IV; Rate: 1 bolus; Site: right antecubital; 17:51 Follow up: IV Status: Completed infusion; IV Intake: 1000ml ap3 16:35 Not Given (Patient Refused): ondansetron 4 mg IVP once; over 2 minutes aa5 17:17 Drug: Ketorolac IVP 15 mg IVP once Route: IVP; Site: right antecubital; ap3 17:51 Follow up: Response: No adverse reaction; Pain is decreased ap3 17:18 Not Given (Patient Refused): ondansetron 4 mg IVP once; over 2 minutes ap3 Disposition Summary: 03/09/25 17:44 Discharge Ordered Notes: Location: Home dr5 Condition: Stable dr5 Diagnosis - Other ovarian cysts dr5 Followup: dr5 - With: Emergency Department - When: As needed - Reason: Worsening of condition Followup: dr5 - With: Lainey Mccray MD - When: 1 - 2 days - Reason: Recheck today's complaints, Continuance of care, Re-evaluation by your physician Discharge Instructions: - Discharge Summary Sheet dr5 - Ovarian Cyst dr5 Forms: - Medication Reconciliation Form dr5 - Patient Portal Instructions dr5 - Leadership Thank You Letter dr5 Prescriptions: - Ibuprofen 800 mg Oral Tablet - take 1 tablet ORAL route every 12 hours As needed take with food; 20 tablet; dr5 Refills: 0, Product Selection Permitted Signatures: Dispatcher [employer] Carole Liu RN RN aa5 Lola Houser RN RN ap3 Danii Clarke RN RN me1 Epi Marcano, DELINQUENT TAX COLLECTOR ASSISTANT-C DELINQUENT TAX COLLECTOR ASSISTANT-Cdr5
[2025-03-09 22:57] VITALS: TEMP 98.4; O2SAT 100
[2025-03-09 22:59] VITALS: BP 153/98
== END 2025-03-09 17:53 | disposition home or self-care (01) ==
LOC: ER 13:36
DX: N83.291 Other ovarian cyst, right side (principal)
CPT/HCPCS: 96361; 85025; 36415; 81025; 81003; 83690; 80053; 74177; 96374; 99284; Q9967; J1885; J2405; J7030